=== PATIENT | female | born 1990 | race Caucasian/White ===

== ENCOUNTER 2016-08-06 16:53 | Emergency (ER) | payer SELFPAY ==
[2016-08-06 18:14] LABS: Hematocrit 36.7 % (30.3-42.9); Hemoglobin 11.7 gm/dl (10.1-14.3); Mean Corpuscular HGB Conc 32 % (30-34); Mean Corpuscular Hemoglobin 30 pg (28-32); Mean Corpuscular Volume 92 fl (79-97); Platelet Count 274 K/mm3 (140-440); Red Blood Count 3.97 M/mm3 (3.65-5.03); Red Cell Distribution Width 12.3 % (13.2-15.2); White Blood Count 6.3 K/mm3 (4.5-11.0)
[2016-08-06 18:36] LABS: Anion Gap 18 mmol/L; BUN/Creatinine Ratio 13.33; Blood Urea Nitrogen 8 mg/dL (7-17); Carbon Dioxide 24 mmol/L (22-30); Chloride 103.1 mmol/L (98-107); Glucose 79 mg/dL (65-100); Potassium 3.8 mmol/L (3.6-5.0); Sodium 141 mmol/L (137-145)
[2016-08-06 19:58] LABS: Bilirubin,Urine NEG (Negative); Blood,Urine SM (Negative); Ketones,Urine NEG (Negative); Leukocyte Esterase,Urine NEG (Negative); Nitrite,Urine NEG (Negative); Protein,Urine <15 mg/dL mg/dL (Negative); Urobilinogen,Urine < 2.0 mg/dL (<2.0)
[2016-08-06 20:02] LABS: WBC,Urine < 1.0 /HPF (0.0-6.0)
[2016-08-07 00:22] VITALS: BP 101/63
--- NOTE | 2016-08-07 00:37 | Emergency Department Report ---
HPI - General Chief Complaint: Vaginal Bleeding Time Seen by Provider: 08/06/16 23:21 - HPI HPI: This is a 26-year-old female presents emergency department from home with complaint of heavy vaginal bleeding and some abdominal cramping. The patient says that she has had 3 positive tests recently but then went [facility] and had a negative test. The patient started having some brown dark vaginal bleeding that was light that she considered to be "old blood" that started on the and went on for a few days. It then stopped and today she began having the heavier brighter blood. Her last menstrual cycle was July 03. She does not have a primary care doctor or [facility]. She denies any past medical history. No recent travel or sick contacts at home. She has used 4 tampons today and had one episode of clots. ED Past Medical Hx - Past Medical History Previous Medical History?: No - Surgical History Past Surgical History?: No - Social History Smoking Status: Current Every Day Smoker Substance Use Type: None - Medications Home Medications: Home Medications Medication Instructions Recorded Confirmed Last Taken Type Acetaminophen/Codeine [Tylenol #3] 1 tab PO Q6H PRN #15 tab 05/19/15 Unknown Rx metroNIDAZOLE [Flagyl] 500 mg PO Q12HR #14 tab 05/19/15 Unknown Rx Vit No.130/Iron/FA 1 each PO QDAY #30 tablet 08/07/16 Unknown Rx [ Tablet] ED Review of Systems ROS: Stated complaint: 3+PREG TEST/BLEEDING/CRAMPING/LIGHTHEADED Other details as noted in HPI Comment: All other systems reviewed and negative Constitutional: denies: chills, fever Eyes: denies: eye pain, eye discharge, vision change ENT: denies: ear pain, throat pain Respiratory: denies: cough, shortness of breath, wheezing Cardiovascular: denies: chest pain, palpitations Gastrointestinal: abdominal pain (cramping). denies: nausea, vomiting Genitourinary: other (vaginal bleeding). denies: urgency, dysuria, discharge Musculoskeletal: denies: back pain, joint swelling, arthralgia Skin: denies: rash, lesions Neurological: denies: headache, weakness, paresthesias Physical Exam - Physical Exam Vital Signs: Vital Signs 08/06/16 08/07/16 17:44 00:20 Temperature 98.2 F 98.1 F Pulse Rate 78 84 Respiratory 18 16 Rate Blood Pressure 121/81 Blood Pressure 101/63 [Left] O2 Sat by Pulse 100 98 Oximetry Physical Exam: GENERAL: The patient is well-developed well-nourished. HEENT: Normocephalic. Atraumatic. Extraocular motions are intact. Patient has moist mucous membranes. Pupils equal reactive to light bilaterally. NECK: Supple. Trachea is midline. CHEST/LUNGS: Clear to auscultation. There is no respiratory distress noted. HEART/CARDIOVASCULAR: Regular. There is no tachycardia. There is no gallop rub or murmur. ABDOMEN: Abdomen is soft, nontender. Patient has normal bowel sounds. There is no abdominal distention. SKIN: Skin is warm and dry. NEURO: The patient is awake, alert, and oriented. The patient is cooperative. The patient has no focal neurologic deficits. The patient has normal speech. MUSCULOSKELETAL: There is no tenderness or deformity. There is no limitation range of motion. There is no evidence of acute injury. : Cervical os appears closed. There is dark venous blood and clots seen in the vaginal vault. ED Course Vital Signs 08/06/16 08/07/16 17:44 00:20 Temperature 98.2 F 98.1 F Pulse Rate 78 84 Respiratory 18 16 Rate Blood Pressure 121/81 Blood Pressure 101/63 [Left] O2 Sat by Pulse 100 98 Oximetry ED Medical Decision Making - Lab Data Result diagrams: 08/06/16 17:51 08/06/16 17:51 - Radiology Data Radiology results: report reviewed Transvaginal/ ultrasound does not show any intrauterine or adnexal masses. Normal-appearing bilateral ovaries. - Medical Decision Making 26-year-old female presents with some vaginal bleeding and 3 previous positive home tests and one negative test at the health Department. Patient's labs are mostly unremarkable today but she does have a beta hCG level of 14. As can be expected with a level at this number, the ultrasound did not show any intrauterine but also did not show any adnexal masses concerning for ectopic at this time. Bilateral normal-appearing ovaries. Most likely the patient has had a miscarriage, but there is still the very small chance that this is a very very early . The patient will be started on vitamins and has been encouraged to follow-up either here in the emergency department or at an [facility] office for a repeat beta hCG level and possible ultrasound in about 4-5 days. If the hormone level is declining, then this is a miscarriage. If the hormone level is somehow headed upwards, it is a possible early intrauterine . - Differential Diagnosis , threatened miscarriage, miscarriage, fibroids Critical Care Time: No Critical care attestation.: If time is entered above; I have spent that time in minutes in the direct care of this critically ill patient, excluding procedure time. ED Disposition Clinical Impression: Vaginal bleeding, Threatened miscarriage Disposition: DISCHARGED TO HOME OR SELFCARE Is pt being admited?: No Condition: Stable Instructions: Threatened Miscarriage (ED) Additional Instructions: Please follow-up with an [facility] in the next 2-3 days. You will need a repeat hormone level and possibly a repeat ultrasound. If the hormone level is declining, then it is most likely that you have had a miscarriage. If the hormone level is rising, it is possible that you still have a viable early . Return to the emergency department with any worsening of your symptoms or any acute distress. Prescriptions: Vit No.130/Iron/FA [ Tablet] 1 each PO QDAY #30 tablet Referrals: PRIMARY CAREMD [Primary Care Provider] - 3-5 Days CHELSY NAZARIO MD [Staff Physician] - 3-5 Days [facility] [Provider Group] - 3-5 Days [facility] [Provider Group] - 3-5 Days Time of Disposition: 01:04
--- NOTE | 2016-08-07 00:54 | Ultrasound Report ---
FINAL REPORT EXAM: US OB \T\lt; = 14 WEEKS FETUS HISTORY: preg with pelvic cramping and vaginal bleed COMPARISON: May 2015 pelvic ultrasound. TECHNIQUE: Several real-time grayscale and color Doppler images were obtained. Transabdominal and transvaginal exam. FINDINGS: Uterus measures 6.4 x 3.3 x 4.4 centimeters. Endometrial stripe measures 3 millimeters. No IUP or adnexal masses are demonstrated. The right ovary measures 3.6 x 2.2 x 2.5 centimeters. Left ovary measures 2.6 x 2.2 x 2.4 centimeters. Vascular images the ovaries are not obtained by technologist. Technologist notes exam limited by patient body habitus. There are follicles within the bilateral ovaries. IMPRESSION: No IUP or adnexal masses. Ovaries are grossly unremarkable. Correlation with serial beta HCGs and followup exam is suggested.
--- NOTE | 2016-08-07 00:54 | Ultrasound Report ---
FINAL REPORT EXAM: US OB TRANSVAGINAL HISTORY: preg with pelvic cramping and vaginal bleed COMPARISON: May 2015 pelvic ultrasound. TECHNIQUE: Several real-time grayscale and color Doppler images were obtained. Transabdominal and transvaginal exam. FINDINGS: Uterus measures 6.4 x 3.3 x 4.4 centimeters. Endometrial stripe measures 3 millimeters. No IUP or adnexal masses are demonstrated. The right ovary measures 3.6 x 2.2 x 2.5 centimeters. Left ovary measures 2.6 x 2.2 x 2.4 centimeters. Vascular images the ovaries are not obtained by technologist. Technologist notes exam limited by patient body habitus. There are follicles within the bilateral ovaries. IMPRESSION: No IUP or adnexal masses. Ovaries are grossly unremarkable. Correlation with serial beta HCGs and followup exam is suggested.
== END 2016-08-07 01:20 | disposition home or self-care (01) ==
LOC: ED 16:53
DX: O20.0 Threatened abortion (principal); F17.200 Nicotine dependence, unspecified, uncomplicated; Z3A.00 Weeks of gestation of pregnancy not specified
CPT/HCPCS: 36415; 76801; 76817; 80048; 81001; 84702; 85027; 86900; 86901; 99284